=== PATIENT | female | born 1975 | race Caucasian/White ===

== ENCOUNTER 2017-04-17 20:24 | Emergency (ER) | payer MEDICAID ==
[~2017-04-17] VITALS: Ht 149.9 cm; Wt 59.0 kg
[2017-04-17 20:29] VITALS: Ht 149.9 cm; Wt 59.0 kg
[2017-04-17 22:22] VITALS: BP 137/72
== END 2017-04-17 22:22 | disposition home or self-care (01) ==
LOC: ED 20:24
DX: R51 Headache (principal); F41.9 Anxiety disorder, unspecified; R06.4 Hyperventilation
CPT/HCPCS: 82962; J1885

== ENCOUNTER 2018-05-22 19:38 | Emergency (ER) | payer MEDICAID ==
[~2018-05-22] VITALS: Ht 149.9 cm; Wt 59.4 kg
[2018-05-22 20:02] VITALS: Ht 149.9 cm; Wt 59.4 kg
[2018-05-22 23:34] VITALS: BP 122/79
== END 2018-05-22 23:34 | disposition home or self-care (01) ==
LOC: ED 19:38
DX: J40 Bronchitis, not specified as acute or chronic (principal); J02.9 Acute pharyngitis, unspecified; Z98.82 Breast implant status
CPT/HCPCS: 87804; J1100; J1885